=== PATIENT | female | born 1985 | race Caucasian/White ===

== ENCOUNTER 2017-02-28 16:58 | Emergency (ER) | payer MEDICAID ==
[~2017-02-28] VITALS: Ht 157.5 cm; Wt 52.3 kg
[2017-02-28 17:09] VITALS: BP 135/98
[2017-02-28] MEDS ORDERED: SODIUM CHLORIDE 0.9% 1,000 ML IV ONE (17:36)
[2017-02-28] MEDS ORDERED: SODIUM CHLORIDE 0.9% 1,000ML IVBOLUS ONE (18:00)
[2017-02-28 18:02] LABS: ASPARTATE AMINO TRANSFERASE 24 U/L (15-37); BLOOD UREA NITROGEN 11 mg/dL (7-18)
[2017-02-28] MEDS ORDERED: MORPHINE SULFATE 4 MG/ML, 1ML ONE (19:49)
[2017-02-28] MEDS ORDERED: ONDANSETRON 2MG/ML, 2ML ONE (19:49)
[2017-02-28] MEDS ORDERED: MORPHINE SULFATE 4 MG/ML, 1ML IVPush ONE (20:00)
[2017-02-28] MEDS ORDERED: ONDANSETRON 2MG/ML, 2ML IVPush ONE (20:00)
== END 2017-02-28 21:30 | disposition home or self-care (01) ==
LOC: ED 21:00
DX: R10.31 Right lower quadrant pain (principal); R10.11 Right upper quadrant pain; R11.2 Nausea with vomiting, unspecified
CPT/HCPCS: 36415; 76830; 80053; 81003; 83690; 84703; 85025; 96361; 96374; 96375; 99285; J2405; J7030

== ENCOUNTER 2017-08-19 23:11 | Emergency (ER) | payer MEDICAID ==
[~2017-08-19] VITALS: Ht 157.5 cm; Wt 55.0 kg
[2017-08-19 23:13] VITALS: BP 170/123
[2017-08-19] MEDS ORDERED: HYDROmorphone 1 MG/ML, 1ML ONE (23:29)
[2017-08-19] MEDS ORDERED: BACITRACIN ZINC OINT 500U/GM, 0.9 GM ONE (23:41)
[2017-08-19] MEDS: HYDROmorphone 1 MG/ML, 1ML IVPush PRN (23:45)
[2017-08-20] MEDS ORDERED: HYDROmorphone 1 MG/ML, 1ML ONE ×2 (00:05→00:13)
[2017-08-20] MEDS: HYDROmorphone 1 MG/ML, 1ML IVPush PRN (00:26)
[2017-08-20] MEDS ORDERED: BACITRACIN ZINC OINT 500U/GM, 0.9 GM ONE (00:55)
== END 2017-08-20 01:37 | disposition home or self-care (01) ==
LOC: ED 23:59 → MERGE 23:59 → ED 08-20 01:37
DX: T25.222A Burn of second degree of left foot, initial encounter (principal); T31.0 Burns involving less than 10% of body surface; X12.XXXA Contact with other hot fluids, initial encounter; Y93.89 Activity, other specified; Y99.8 Other external cause status; Y92.099 Unspecified place in other non-institutional residence as the place of occurrence of the external cause
CPT/HCPCS: 96374; 96376; 99284; J1170

== ENCOUNTER 2017-08-26 15:54 | Emergency (ER) | payer MEDICAID ==
[~2017-08-26] VITALS: Ht 157.5 cm; Wt 56.0 kg
[2017-08-26 15:57] VITALS: BP 156/97
[2017-08-26] MEDS ORDERED: SILVER SULF. CRM 1% , 25GM ONE (16:36)
[2017-08-26] MEDS ORDERED: SILVER SULF. CRM 1% , 25GM TP ONE (17:00)
== END 2017-08-26 17:34 | disposition home or self-care (01) ==
LOC: ED 16:55
DX: T25.221A Burn of second degree of right foot, initial encounter (principal); X11.8XXA Contact with other hot tap-water, initial encounter; Y93.89 Activity, other specified; Y92.89 Other specified places as the place of occurrence of the external cause; Y99.8 Other external cause status
CPT/HCPCS: 99283

== ENCOUNTER 2018-06-15 15:21 | Emergency (ER) | payer MEDICAID ==
[~2018-06-15] VITALS: Ht 162.6 cm; Wt 62.0 kg
[2018-06-15 15:23] VITALS: BP 117/97
[2018-06-15] MEDS ORDERED: MAALOX/HYOSCYAMINE/LIDOCAINE 45 ML BTL ONE (15:40)
[2018-06-15] MEDS ORDERED: MAALOX/HYOSCYAMINE/LIDOCAINE 45 ML BTL PO ONE (16:00)
== END 2018-06-15 16:44 | disposition home or self-care (01) ==
LOC: ED 16:29
DX: J02.9 Acute pharyngitis, unspecified (principal); K21.9 Gastro-esophageal reflux disease without esophagitis; F17.200 Nicotine dependence, unspecified, uncomplicated
CPT/HCPCS: 99283

== ENCOUNTER 2018-08-07 23:20 | Emergency (ER) | payer MEDICAID ==
[~2018-08-07] VITALS: Ht 157.5 cm; Wt 66.3 kg
[2018-08-07 23:22] VITALS: BP 143/93
[2018-08-07] MEDS ORDERED: LIDOCAINE-MPF 1%, 2ML ONE (23:27)
[2018-08-07] MEDS ORDERED: BACITRACIN ZINC OINT 500U/GM, 0.9 GM ONE (23:48)
[2018-08-08] MEDS ORDERED: LIDOCAINE-MPF 1%, 5ML INFIL ONE
[2018-08-08] MEDS ORDERED: DIPH,PERTUSS(ACELL),TET VAC/PF 0.5 ML IM-VACC ONE ×2 (00:08)
== END 2018-08-08 00:19 | disposition home or self-care (01) ==
LOC: ED 23:44
DX: S61.211A Laceration without foreign body of left index finger without damage to nail, initial encounter (principal); G89.11 Acute pain due to trauma; W01.118A Fall on same level from slipping, tripping and stumbling with subsequent striking against other sharp object, initial encounter; Y93.89 Activity, other specified; Y92.89 Other specified places as the place of occurrence of the external cause; Y99.8 Other external cause status
CPT/HCPCS: 12001; 90471; 90715; 99283

== ENCOUNTER 2019-02-28 17:31 | Emergency (ER) | payer MEDICAID ==
[~2019-02-28] VITALS: Ht 157.5 cm; Wt 64.8 kg
--- NOTE | 2019-02-28 17:45 | NUR ---
PAINFUL URINATION AND PELVIC PAIN X2 DAYS. "I THINK I HAD A YEAST INFECTION A COUPLE OF WEEKS AGO AND I WAS TREATING IT WITH OVER THE COUNTER STUFF" +RT FLANK TENDERNESS.
[2019-02-28] MEDS ORDERED: PHENAZOPYRIDINE 200 MG TABLET ONE (18:13)
[2019-02-28 18:30] LABS: HCG UR SG 1.022 (1.003-1.030)
[2019-02-28] MEDS ORDERED: PHENAZOPYRIDINE 200 MG TABLET PO ONE (18:30)
[2019-02-28] MEDS ORDERED: ONDANSETRON ODT 8 MG PO ONE (18:30)
[2019-02-28 18:41] LABS: CULTURE INDICATED? YES; MICROSCOPIC INDICATED
[2019-02-28] MEDS ORDERED: ONDANSETRON ODT 8 MG ONE (18:43)
--- NOTE | 2019-02-28 18:50 | NUR ---
TASK RN: FIRST CONTACT WITHPT. MEDICATION ADMINISTERED PER EMAR.
--- NOTE | 2019-02-28 19:00 | NUR ---
REPORTS PAIN TO 2/10, NAUSEA COMPLETELY IMPROVED TO 0/10 TAKING PO FLUIDS UPDATED ON POC
[2019-02-28] MEDS ORDERED: CEFDINIR 300 MG CAPSULE PO ONE (19:30)
[2019-02-28] MEDS ORDERED: CEFDINIR 300 MG CAPSULE ONE (19:36)
[2019-02-28 19:54] VITALS: BP 129/71
== END 2019-02-28 19:56 | disposition home or self-care (01) ==
LOC: ED 19:04
DX: N39.0 Urinary tract infection, site not specified (principal)
CPT/HCPCS: 81001; 81025; 87086; 99284; Q0162

== ENCOUNTER 2019-03-03 20:16 | Emergency (ER) | payer MEDICAID ==
[~2019-03-03] VITALS: Ht 157.5 cm; Wt 63.5 kg
[2019-03-03 20:19] VITALS: BP 147/104
--- NOTE | 2019-03-03 20:38 | NUR ---
Assumed care of patient. Seen here UTI on Sunday. Patient compliant with medication, but reports worsening symptoms and increased pain. BRYAN Naidu at bedside. Will continue to monitor.
[2019-03-03 21:09] LABS: MICROSCOPIC INDICATED
[2019-03-03 21:15] LABS: CULTURE INDICATED? YES
--- NOTE | 2019-03-03 21:36 | NUR ---
Report from dannie bruno. This rn to assume care of pt. Awaiting results.
[2019-03-03] MEDS ORDERED: CEFTRIAXONE 250 MG ONE (21:38)
[2019-03-03] MEDS ORDERED: AZITHROMYCIN 500 MG TABLET ONE (21:38)
[2019-03-03 21:44] LABS: CLUE CELLS NONE SEEN (NONE SEEN); WET PREP WBCS NONE SEEN (FEW)
[2019-03-03] MEDS ORDERED: AZITHROMYCIN 500 MG TABLET PO ONE (22:00)
[2019-03-03] MEDS ORDERED: CEFTRIAXONE 250 MG IM ONE (22:00)
== END 2019-03-03 22:28 | disposition home or self-care (01) ==
LOC: ED 21:41
DX: N30.00 Acute cystitis without hematuria (principal); F17.200 Nicotine dependence, unspecified, uncomplicated
CPT/HCPCS: 81001; 81025; 87086; 87210; 87491; 87591; 87808; 96372; 99283; J0696

== ENCOUNTER 2019-09-17 13:47 | Emergency (ER) | payer MEDICAID ==
[~2019-09-17] VITALS: Ht 157.5 cm; Wt 63.5 kg
[2019-09-17] MEDS ORDERED: ONDANSETRON ODT 4 MG PO ONE (14:30)
[2019-09-17] MEDS ORDERED: ONDANSETRON ODT 4 MG ONE (14:49)
[2019-09-17] MEDS ORDERED: FAMOTIDINE 20 MG TABLET PO ONE (15:00)
[2019-09-17 15:14] LABS: BASOPHILS # (AUTO) 0.09 x10^3/uL (0-0.1); BASOPHILS % (AUTO) 1 % (0-1); EOSINOPHILS # (AUTO) 0.33 x10^3/uL (0-0.4); EOSINOPHILS % (AUTO) 3 % (1-7); LYMPHOCYTES # (AUTO) 2.91 x10^3/uL (1-3.4); LYMPHOCYTES % (AUTO) 25 % (22-44); MD NO; MEAN CORPUSCULAR HEMOGLOBIN 33.5 pg (27.0-34.8); MEAN CORPUSCULAR HGB CONC 33.8 g/dL (32.4-35.8); MEAN CORPUSCULAR VOLUME 99.1 fL (80-100); MEAN PLATELET VOLUME 7.3 fL (7.4-10.4); MONOCYTES # (AUTO) 0.59 x10^3/uL (0.2-0.8); MONOCYTES % (AUTO) 5 % (2-9); NEUTROPHILS # (AUTO) 7.56 x10^3/uL (1.8-6.8); NEUTROPHILS % (AUTO) 66 % (42-75); PLATELET COUNT 324 x10^3/uL (130-400); RED BLOOD COUNT 4.84 x10^6/uL (3.82-5.3); RED CELL DISTRIBUTION WIDTH 12.3 % (9.6-15.2)
[2019-09-17 15:22] LABS: ALBUMIN 4.2 g/dL (3.4-5.0); ANION GAP 7 mmol/L (5-15); CALCIUM 9.1 mg/dL (8.5-10.1); CHLORIDE 109 mmol/L (98-107)
[2019-09-17 15:26] LABS: ALANINE AMINOTRANSFERASE 15 U/L (12-78); ALKALINE PHOSPHATASE 65 U/L (45-117); BILIRUBIN,TOTAL 0.9 mg/dL (0.2-1.0); CREATININE 1.04 mg/dL (0.55-1.02); TOTAL PROTEIN 7.9 g/dL (6.4-8.2)
[2019-09-17] MEDS ORDERED: PROMETHAZINE 25 MG/ML, 1ML IM ONE (15:30)
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
[2019-09-17] MEDS ORDERED: PROMETHAZINE 25 MG/ML, 1ML ONE (15:44)
[2019-09-17] MEDS ORDERED: FAMOTIDINE 20 MG TABLET ONE (15:44)
--- NOTE | 2019-09-17 15:46 | NUR ---
VOMITING SINCE SUNDAY, ABD PAIN, HX GASTROPARESIS, "I THINK MY GASTROPARESIS IS COMING BACK". TOOK PEPTO-BISMOL FOR SX; LAST DOSE 0830 TODAY. ORAL INTAKE "A LITTLE BIT OF WATER TODAY". LAST BM: TODAY, "FLAKEY", STRAWBERRY AND BLACK. LMP: 09/01/19
--- NOTE | 2019-09-17 15:57 | NUR ---
PEPCID & PHENERGAN GIVEN PER EMAR.
[2019-09-17 15:58] VITALS: BP 122/83
[2019-09-17] MEDS ORDERED: MULTIVITAMIN (16:01)
[2019-09-17 16:35] LABS: CULTURE INDICATED? NO; HCG UR SG 1.009 (1.003-1.030); MICROSCOPIC NOT IND
--- NOTE | 2019-09-17 17:20 | NUR ---
PT REPORT TO BREAK RN: DEBRA. PT CARE TRANSFERRED.
--- NOTE | 2019-09-17 17:22 | NUR ---
ALIS RN: PATIENT GIVEN D/C PAPERWORK. PATIENT VERBALIZED UNDERSTANDING. AWARE TO FOLLOW UP WITH PCP.
== END 2019-09-17 17:24 | disposition home or self-care (01) ==
LOC: ED 16:28
DX: R11.2 Nausea with vomiting, unspecified (principal); R10.84 Generalized abdominal pain; Z87.19 Personal history of other diseases of the digestive system
CPT/HCPCS: 36415; 74021; 80053; 81003; 81025; 83690; 85025; 96372; 99284; J2550; Q0162

== ENCOUNTER 2019-11-09 07:18 | Emergency (ER) | payer MEDICAID ==
[~2019-11-09] VITALS: Ht 157.5 cm; Wt 63.5 kg
[~2019-11-09 07:18] MED LIST: MULTIVITAMIN
[2019-11-09 07:28] VITALS: BP 148/99
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
--- NOTE | 2019-11-09 07:40 | NUR ---
ALBERTO ADAMS AT BEDSIDE TO NOLAN PT. PT HR DECREASED TO 115.
== END 2019-11-09 08:09 | disposition home or self-care (01) ==
LOC: ED 08:07
DX: T19.2XXA Foreign body in vulva and vagina, initial encounter (principal); X58.XXXA Exposure to other specified factors, initial encounter; Y93.89 Activity, other specified; Y92.89 Other specified places as the place of occurrence of the external cause; Y99.8 Other external cause status
CPT/HCPCS: 99284

== ENCOUNTER 2019-11-25 16:55 | Emergency (ER) | payer MEDICAID ==
[~2019-11-25] VITALS: Ht 157.5 cm; Wt 63.7 kg
[2019-11-25 16:56] VITALS: BP 136/84
--- NOTE | 2019-11-25 17:12 | NUR ---
JERRI COLLECTED AND SENT FROM [employer]
[2019-11-25 17:31] LABS: CULTURE INDICATED? YES; MICROSCOPIC INDICATED
[2019-11-25 17:36] LABS: ALBUMIN 3.8 g/dL (3.4-5.0); ANION GAP 5 mmol/L (5-15); BASOPHILS # (AUTO) 0.09 x10^3/uL (0-0.1); BASOPHILS % (AUTO) 1 % (0-1); CALCIUM 8.9 mg/dL (8.5-10.1); CHLORIDE 106 mmol/L (98-107); CREATININE 0.88 mg/dL (0.55-1.02); EOSINOPHILS # (AUTO) 0.41 x10^3/uL (0-0.4); EOSINOPHILS % (AUTO) 4 % (1-7); LYMPHOCYTES # (AUTO) 2.74 x10^3/uL (1-3.4); LYMPHOCYTES % (AUTO) 29 % (22-44); MD NO; MEAN CORPUSCULAR HEMOGLOBIN 32.5 pg (27.0-34.8); MEAN CORPUSCULAR HGB CONC 34.1 g/dL (32.4-35.8); MEAN CORPUSCULAR VOLUME 95.3 fL (80-100); MEAN PLATELET VOLUME 7.3 fL (7.4-10.4); MONOCYTES # (AUTO) 0.57 x10^3/uL (0.2-0.8); MONOCYTES % (AUTO) 6 % (2-9); NEUTROPHILS # (AUTO) 5.78 x10^3/uL (1.8-6.8); NEUTROPHILS % (AUTO) 60 % (42-75); PLATELET COUNT 377 x10^3/uL (130-400); RED BLOOD COUNT 4.84 x10^6/uL (3.82-5.3); RED CELL DISTRIBUTION WIDTH 12.5 % (9.6-15.2)
--- NOTE | 2019-11-25 19:00 | NUR ---
pt called to room from lobby
--- NOTE | 2019-11-25 19:12 | NUR ---
BURNING URINATION X2 DAYS, LAST NIGHT LEFT SIDE FLANK PAIN. HX OF KIDNEY STONES. NO N/V OR ABD PAIN
[2019-11-25] MEDS ORDERED: IBUPROFEN 600 MG TABLET PO ONE (19:30)
[2019-11-25] MEDS ORDERED: IBUPROFEN 200 MG TABLET ONE (19:35)
[2019-11-25] MEDS ORDERED: CEFDINIR 300 MG CAPSULE PO ONE (20:00)
[2019-11-25] MEDS ORDERED: CEFDINIR 300 MG CAPSULE ONE (20:17)
--- NOTE | 2019-11-25 20:32 | NUR ---
Patient/Caregiver given discharge instructions and they have confirmed that they understand the instructions. Patient ambulatory with steady gait.
== END 2019-11-25 20:34 | disposition home or self-care (01) ==
LOC: ED 20:25
DX: N83.292 Other ovarian cyst, left side (principal); N30.00 Acute cystitis without hematuria
CPT/HCPCS: 36415; 74176; 80048; 81001; 82040; 84703; 85025; 87086; 99284

== ENCOUNTER 2020-05-30 01:27 | Emergency (ER) | payer MEDICAID ==
[~2020-05-30] VITALS: Ht 157.5 cm; Wt 56.8 kg
[2020-05-30] MEDS ORDERED: LORazepam 1MG TABLET ONE (01:52)
[2020-05-30 01:55] LABS: BASOPHILS # (AUTO) 0.04 x10^3/uL (0-0.1); BASOPHILS % (AUTO) 0 % (0-1); EOSINOPHILS # (AUTO) 0.16 x10^3/uL (0-0.4); EOSINOPHILS % (AUTO) 2 % (1-7); LYMPHOCYTES # (AUTO) 2.66 x10^3/uL (1-3.4); LYMPHOCYTES % (AUTO) 29 % (22-44); MD NO; MEAN CORPUSCULAR HEMOGLOBIN 32.7 pg (27.0-34.8); MEAN CORPUSCULAR HGB CONC 34.2 g/dL (32.4-35.8); MEAN CORPUSCULAR VOLUME 95.7 fL (80-100); MEAN PLATELET VOLUME 7.2 fL (7.4-10.4); MONOCYTES % (AUTO) 5 % (2-9); NEUTROPHILS # (AUTO) 5.88 x10^3/uL (1.8-6.8); NEUTROPHILS % (AUTO) 64 % (42-75); PLATELET COUNT 365 x10^3/uL (130-400); RED BLOOD COUNT 4.74 x10^6/uL (3.82-5.3); RED CELL DISTRIBUTION WIDTH 12.7 % (9.6-15.2)
[2020-05-30] MEDS ORDERED: LORazepam 1MG TABLET PO ONE (02:00)
[2020-05-30 02:06] LABS: ALANINE AMINOTRANSFERASE 21 U/L (12-78); ALBUMIN 4.3 g/dL (3.4-5.0); ANION GAP 12 mmol/L (5-15); CALCIUM 8.6 mg/dL (8.5-10.1); CHLORIDE 108 mmol/L (98-107); CREATININE 0.86 mg/dL (0.55-1.02); SALICYLATE LEVEL < 1.7 mg/dL (2.8-20.0)
[2020-05-30 02:11] LABS: ALKALINE PHOSPHATASE 85 U/L (45-117); BILIRUBIN,TOTAL 0.3 mg/dL (0.2-1.0); TOTAL PROTEIN 7.8 g/dL (6.4-8.2)
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
[2020-05-30] MEDS ORDERED: ZIPRASIDONE 20 MG INJ IM ONE (02:30)
--- NOTE | 2020-05-30 03:34 | NUR ---
pt resting on gurney, eyes closed respirations even and unlabored. sitter at doorway for frequent checks.
[2020-05-30] MEDS ORDERED: LORazepam 0.5MG TABLET PO ONE (05:00)
[2020-05-30] MEDS ORDERED: LORazepam 0.5MG TABLET ONE (05:09)
--- NOTE | 2020-05-30 05:23 | NUR ---
PT WITH COMPLAINTS OF INCREASED ANXIETY. PT MEDICATED A SECOND TIME WITH ATIVAN
--- NOTE | 2020-05-30 07:02 | NUR ---
report received from jessica bruno.
--- NOTE | 2020-05-30 07:11 | NUR ---
diet tray ordered at this time.
--- NOTE | 2020-05-30 08:08 | NUR ---
DIET TRAY PROVIDED AT THIS TIME BUT PT REFUSING.
[2020-05-30 08:55] VITALS: BP 139/88
--- NOTE | 2020-05-30 09:23 | NUR ---
Patient given discharge instructions and they have confirmed that they understand the instructions. Patient ambulatory with steady gait.
== END 2020-05-30 09:23 | disposition home or self-care (01) ==
LOC: ED 09:04
DX: F41.1 Generalized anxiety disorder (principal); F10.20 Alcohol dependence, uncomplicated; F17.210 Nicotine dependence, cigarettes, uncomplicated; Y90.9 Presence of alcohol in blood, level not specified
CPT/HCPCS: 36415; 80053; 80307; 84443; 84703; 85025; 99283

== ENCOUNTER 2020-12-26 22:15 | Emergency (ER) | payer MEDICAID ==
[~2020-12-26] VITALS: Ht 157.5 cm; Wt 61.1 kg
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
[2020-12-27] MEDS ORDERED: ONDANSETRON ODT 4 MG PO ONE (00:30)
[2020-12-27] MEDS ORDERED: IBUPROFEN 800 MG TABLET PO ONE (00:30)
[2020-12-27] MEDS ORDERED: IBUPROFEN 800 MG TABLET ONE (00:33)
[2020-12-27] MEDS ORDERED: ONDANSETRON ODT 4 MG ONE (00:34)
[2020-12-27 00:40] VITALS: BP 150/97
--- NOTE | 2020-12-27 00:40 | NUR ---
Assist RN: Medicated patient per mar. Discharge instructions given. All questions and concerns addressed. Patient ambulatory with a steady gait. Belongings with patient.
== END 2020-12-27 00:45 | disposition home or self-care (01) ==
LOC: ED 23:24
DX: S06.0X0A Concussion without loss of consciousness, initial encounter (principal); S01.01XA Laceration without foreign body of scalp, initial encounter; S05.11XA Contusion of eyeball and orbital tissues, right eye, initial encounter; Y04.0XXA Assault by unarmed brawl or fight, initial encounter; Y93.89 Activity, other specified; Y92.89 Other specified places as the place of occurrence of the external cause; Y99.8 Other external cause status
CPT/HCPCS: 70450; 70486; 99285; Q0162

== ENCOUNTER 2021-02-10 16:27 | Emergency (ER) | payer MEDICAID ==
[~2021-02-10] VITALS: Ht 157.5 cm; Wt 60.0 kg
[2021-02-10 16:31] VITALS: BP 101/78
--- NOTE | 2021-02-10 17:45 | NUR ---
NETWORK TECHNICIAN: PT TO ROOM FROM LOBBY.
--- NOTE | 2021-02-10 17:53 | NUR ---
BORDER OF REDNESS OUTLINED WITH SKIN MARKER. PT TOOK PIC WITH PHONE, VERBALIZES UNDERSTANDING FOR DISCHARGE.
== END 2021-02-10 18:23 | disposition home or self-care (01) ==
LOC: ED 18:10
DX: R21 Rash and other nonspecific skin eruption (principal); M25.512 Pain in left shoulder; M79.89 Other specified soft tissue disorders
CPT/HCPCS: 99281

== ENCOUNTER 2021-05-24 17:38 | Emergency (ER) | payer MEDICAID ==
[~2021-05-24] VITALS: Ht 157.5 cm; Wt 61.0 kg
[2021-05-24] MEDS ORDERED: KETOROLAC 30 MG/1 ML IM ONE (18:00)
[2021-05-24] MEDS ORDERED: DIPHENHYDRAMINE 25 MG CAPSULE PO ONE (18:00)
[2021-05-24] MEDS ORDERED: SUMATRIPTAN 6MG/0.5ML SQ ONE ×2 (18:00→18:20)
[2021-05-24] MEDS ORDERED: METOCLOPRAMIDE 10MG TABLET PO ONE (18:00)
[2021-05-24] MEDS ORDERED: DIPHENHYDRAMINE 25 MG CAPSULE ONE (18:20)
[2021-05-24] MEDS ORDERED: METOCLOPRAMIDE 10MG TABLET ONE (18:20)
[2021-05-24] MEDS ORDERED: KETOROLAC 60 MG/2 ML ONE (18:20)
[2021-05-24 18:31] VITALS: BP 147/94
--- NOTE | 2021-05-24 18:33 | NUR ---
PT MEDICATED PER EMAR.
--- NOTE | 2021-05-24 18:49 | NUR ---
REPORT RECEIVED FROM LORAINE SILVEIRA
--- NOTE | 2021-05-24 19:02 | NUR ---
Patient given discharge instructions and they have confirmed that they understand the instructions. Patient ambulatory with steady gait.
== END 2021-05-24 19:04 | disposition home or self-care (01) ==
LOC: ED 18:55
DX: G43.109 Migraine with aura, not intractable, without status migrainosus (principal); F17.210 Nicotine dependence, cigarettes, uncomplicated
CPT/HCPCS: 96372; 99284; 99406; J1885; J3030; Q0163; Q0181

== ENCOUNTER 2021-05-27 22:15 | Emergency (ER) | payer MEDICAID ==
[~2021-05-27] VITALS: Ht 157.5 cm; Wt 63.0 kg
[2021-05-27 22:24] VITALS: BP 147/95
--- NOTE | 2021-05-27 23:55 | NUR ---
CALLED IN THE LOBBY, NO ANSWER
--- NOTE | 2021-05-28 00:40 | NUR ---
CALLED IN THE LOBBY, NO ANSWER
--- NOTE | 2021-05-28 01:15 | NUR ---
CALLED IN THE LOBBY, ANSWER.
== END 2021-05-28 01:20 | disposition left against medical advice (07) ==
LOC: ED 05-28
DX: N39.0 Urinary tract infection, site not specified (principal); Z53.21 Procedure and treatment not carried out due to patient leaving prior to being seen by health care provider

== ENCOUNTER 2021-06-16 13:34 | Emergency (ER) | payer MEDICAID ==
[~2021-06-16] VITALS: Ht 157.5 cm; Wt 60.9 kg
[2021-06-16 14:48] LABS: MICROSCOPIC INDICATED
[2021-06-16 15:07] LABS: BASOPHILS % (AUTO) 1 % (0-1); EOSINOPHILS % (AUTO) 1 % (1-7); LYMPHOCYTES % (AUTO) 10 % (22-44); MEAN CORPUSCULAR HEMOGLOBIN 33.4 pg (27.0-34.8); MEAN CORPUSCULAR HGB CONC 34.5 g/dL (32.4-35.8); MEAN PLATELET VOLUME 7.4 fL (7.4-10.4); MONOCYTES % (AUTO) 10 % (2-9); NEUTROPHILS % (AUTO) 79 % (42-75); PLATELET COUNT 310 x10^3/uL (130-400); RED BLOOD COUNT 4.56 x10^6/uL (3.82-5.3); RED CELL DISTRIBUTION WIDTH 12.5 % (9.6-15.2)
[2021-06-16 15:13] LABS: ALBUMIN 4.1 g/dL (3.4-5.0); ANION GAP 5 mmol/L (5-15); CALCIUM 9.1 mg/dL (8.5-10.1); CHLORIDE 105 mmol/L (98-107)
[2021-06-16 15:23] LABS: ALANINE AMINOTRANSFERASE 31 U/L (12-78); ALKALINE PHOSPHATASE 80 U/L (45-117); BILIRUBIN,TOTAL 0.6 mg/dL (0.2-1.0); CREATININE 0.82 mg/dL (0.55-1.02); TOTAL PROTEIN 7.7 g/dL (6.4-8.2)
--- NOTE | 2021-06-16 20:54 | NUR ---
task rn: pt ambulated back to room at this time. pt nad, resting on gurney, came in for uti like symptoms, painful urination and right sided flank pain x2 weeks. was seen here and prescribed abx for uti but never felt like uti cleared up. reports decreased appetite and generally not feeling well. placed on spo2/bp monitoring, bed in lowest, rails engaged,call light on lap, wctm.
[2021-06-16 20:55] VITALS: BP 140/104
== END 2021-06-16 22:09 | disposition home or self-care (01) ==
LOC: ED 22:00
DX: N30.00 Acute cystitis without hematuria (principal); Z87.891 Personal history of nicotine dependence
CPT/HCPCS: 36415; 80053; 81001; 83690; 84703; 85025; 87086; 87147; 99283